=== PATIENT | female | born 1995 | race Hispanic/Latino ===

== ENCOUNTER 2023-11-13 12:37 | Outpatient (CLI) | payer BC | END 2023-11-13 12:38 | disposition home or self-care (01) | LOC: BICMRI 12:37 | PROVIDERS: ATTEND Nurse Practitioner Family | DX: M51.16 Intervertebral disc disorders with radiculopathy, lumbar region (principal) | CPT/HCPCS: 72148; 72195 ==

== ENCOUNTER 2024-01-05 14:26 | Outpatient (CLI) | payer BC | END 2024-01-05 14:27 | disposition home or self-care (01) | LOC: BICRAD 14:26 | PROVIDERS: ATTEND Physician Assistant Surgical | DX: M51.16 Intervertebral disc disorders with radiculopathy, lumbar region (principal) | CPT/HCPCS: 72120 ==